=== PATIENT | female | born 1955 | race Caucasian/White ===

== ENCOUNTER 2018-08-02 03:35 | Day surgery (SDC) | payer BC ==
[~2018-08-02] VITALS: Ht 170.2 cm; Wt 84.8 kg
[~2018-08-02 03:35] MED LIST: LEV125 PO; LEVO-3 PO; PRA20 PO
[2018-08-02 07:09] VITALS: BP 135/92
[2018-08-02] MEDS ORDERED: LIDOCAINE/SOD BICARB 8.4% SYR ID ONE (07:25)
[2018-08-02] MEDS ORDERED: NORMOSOL R SOLN(*) 1000 ML BAG 1,000 ML IV PRN (07:25)
[2018-08-02] MEDS ORDERED: LIDOCAINE MPF 1% 5 ML VIAL ONE (07:30)
[2018-08-02] MEDS ORDERED: PROPOFOL EMUL(*) 10MG/ML 20 ML 40 ML ONE (07:30)
[2018-08-02 08:21] VITALS: BP 106/67
--- NOTE | 2018-08-02 08:25 | Short(Outpt) Discharge Summary ---
Discharge Summary Reason for Hosp/Final Diag: (1) Colon cancer screening Status: Chronic Hospital Course & Plan: Colonoscopy completed without problems,normal, colonoscopy in 10 years. Departure Discharge to: Home, Self Care Discharge Instructions Home Meds Reported Medications Levothyroxine Sodium (LEVOTHYROXINE SODIUM) 100 Mcg Tablet, 100 MCG PO QDAY, TAB 07/21/18 Pravastatin Sod (Pravachol) 20 Mg Tab, 40 MG PO QHS 01/30/08 Diet: Regular Activity: As Tolerated Special Instructions: Your colonoscopy was completed without any problems and your prep was excellent (Good Job!!). I didn't find any polyps, cancer, or other abnormalities, it was completely normal. I recommend that your next colonoscopy be in 10 years. DEB RAY MD Aug 02, 2018 08:25
[2018-08-02 08:45] VITALS: BP 106/67
[2018-08-02 08:52] VITALS: BP 118/77
[2018-08-02 08:54] VITALS: BP 131/86
== END 2018-08-02 09:05 | disposition home or self-care (01) ==
LOC: OR 03:35
PROVIDERS: ATTEND Surgery
DX: Z12.11 Encounter for screening for malignant neoplasm of colon (principal); Z83.71 Family history of colonic polyps
CPT/HCPCS: 00812; 45378; J2001; J2704

== ENCOUNTER → 2018-12-29 | Outpatient (CLI) | payer BC ==
--- NOTE | 2018-12-29 12:06 | RADIOLOGY IMAGING REPORT ---
FACILITY: [facility] PATIENT NAME: SELENA RINCON : [id number] MR: [id number] V: [id number] EXAM DATE: [id number] ORDERING PHYSICIAN: ARLINE RÍOS TECHNOLOGIST: Christine Prather PROCEDURE:BILATERAL DIGITAL SCREENING MAMMOGRAM WITH CAD ASSISTED INTERPRETATION & 3D TOMOSYNTHESIS COMPARISON:Prior mammograms 12/29/16, 12/30/14. INDICATIONS:SCREENING FINDINGS: The breasts are heterogeneously dense which can obscure small masses. The parenchymal pattern has remained stable allowing for difference in mammographic technique & patient positioning. DIAGNOSTIC CATEGORY 1--NEGATIVE. RECOMMENDATIONS: ROUTINE MAMMOGRAM AND CLINICAL EVALUATION. IMPRESSION: BIRADS 1: Negative. No significant abnormality is seen. Dictated by: Dayan Cai M.D. on 12/29/2018 at 9:49 Transcribed by: SARA on 12/29/2018 at 10:49 Approved by: Dayan Cai M.D. on 12/29/2018 at 12:04 [facility]
== END ==
LOC: MAMO 01:39
PROVIDERS: ATTEND Nurse Practitioner Family
DX: Z12.31 Encounter for screening mammogram for malignant neoplasm of breast (principal)
CPT/HCPCS: 77063; 77067